=== PATIENT | female | born 2000 | race Caucasian/White ===

== ENCOUNTER 2020-12-02 23:45 | Emergency (ER) | payer BC ==
[~2020-12-02] VITALS: Ht 160 cm; Wt 55.3 kg
[2020-12-03] MEDS ORDERED: KETOROLAC TROMETHAMINE 30 MG INJ IVP ONE (00:15)
[2020-12-03] MEDS ORDERED: IV NS 1000 ML 1,000 ML IV ONE (00:15)
[2020-12-03] MEDS ORDERED: diphenhydrAMINE 50 MG/1 ML VIAL IV ONE (00:15)
[2020-12-03] MEDS ORDERED: METOCLOPRAMIDE HCL 10 MG/2 ML VIAL IV ONE (00:15)
[2020-12-03 00:28] LABS: *URINE HCG, QUAL NEGATIVE (NEGATIVE)
--- NOTE | 2020-12-03 00:30 | NUR ---
Pt bib triage nurse via waiting room for cc of SCHULTZ and mild dizzyness s/p hitting head against granite counter while bent down. VSS, PE WNL, otherwise healthy individual. Denies any pain or discomfort at the moment, however does state that she feels mildly dizzy while up and walking.
--- NOTE | 2020-12-03 00:40 | NUR ---
ELIANA Peña at bedside to assess pt.
[2020-12-03] MEDS ORDERED: KETOROLAC TROMETHAMINE 15 MG INJ ONE (00:41)
[2020-12-03] MEDS ORDERED: METOCLOPRAMIDE HCL 10 MG/2 ML VIAL ONE (00:42)
[2020-12-03] MEDS ORDERED: KETOROLAC TROMETHAMINE 30 MG INJ ONE (00:43)
[2020-12-03] MEDS ORDERED: diphenhydrAMINE 50 MG/1 ML VIAL ONE (00:45)
--- NOTE | 2020-12-03 00:55 | NUR ---
Dr. Peña ordered IV fluids and meds. In with pt to start line and give meds.
--- NOTE | 2020-12-03 01:10 | NUR ---
About to start line when pt, upon considering the time needed for treatment, decided to refuse IV line and sign out AMA so that she could make it to her morning class at [facility]. She said that she will call her PMD and make and appt to see him at his office. Upon telling Dr. Peña, he went to pt bedside and spoke with pt and decided to discharge her with a scipt of imitrex, compazine and aleive, after recieving a loading dose of imitrex here in the ER right before DC.
[2020-12-03] MEDS ORDERED: SUMATRIPTAN SUCCINATE 50 MG TABLET PO ONE (01:15)
[2020-12-03] MEDS ORDERED: ONDANSETRON HCL 4 MG TABLET PO ONE (01:15)
[2020-12-03] MEDS ORDERED: NAPROXEN 500 MG TABLET PO ONE (01:15)
--- NOTE | 2020-12-03 01:16 | NUR ---
Ordered meds given to pt PO without difficulty. Pt tolerated well with no signs of reaction.
[2020-12-03] MEDS ORDERED: SUMA100T16 PO (01:19)
[2020-12-03] MEDS ORDERED: NAPR-1164 PO (01:19)
[2020-12-03] MEDS ORDERED: PROC-11 PO (01:19)
[2020-12-03] MEDS ORDERED: NAPROXEN 500 MG TABLET ONE (01:20)
[2020-12-03] MEDS ORDERED: SUMATRIPTAN SUCCINATE 50 MG TABLET ONE (01:25)
--- NOTE | 2020-12-03 01:25 | NUR ---
Pt given aftercare instructions and signed DC paperwork. 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 Denies pain and discomfort. No s/sx of distress. escorted out via walking with steady gait. In pleasant and jovial mood aeb smiling and laughing behaviour. Thankful of services provided.
[2020-12-03] MEDS ORDERED: ONDANSETRON HCL 4 MG TABLET ONE (01:26)
[2020-12-03 02:24] VITALS: BP 120/73
== END 2020-12-03 01:25 | disposition home or self-care (01) ==
LOC: ER 12-03
DX: G43.909 Migraine, unspecified, not intractable, without status migrainosus (principal); S09.90XA Unspecified injury of head, initial encounter; X58.XXXA Exposure to other specified factors, initial encounter; Y92.89 Other specified places as the place of occurrence of the external cause
CPT/HCPCS: 84703; A4663; J1200; J1885; J2765; J7030; Q0162